=== PATIENT | female | born 1970 | race Caucasian/White ===

== ENCOUNTER 2021-10-27 11:36 | Day surgery (SDC) | payer OTHER, SELFPAY ==
[2021-10-23 15:07] VITALS: BMI 25.0
--- NOTE | 2021-10-26 14:09 | P.CONAN_ITS ---
Documented by User: Cher Chaudhry NP 10/26/21 14:09 HPI - Anesthesia Eval Consult details Narrative: 51yo F for Colonoscopy [facility] Past Medical History Medical History Diabetes Elevated cholesterol HTN (hypertension) Surgical History Surgical History History of Hx of cholecystectomy Hx of tubal ligation Social History Social History Patient Tobacco Use Status: Never used Tobacco Use of substances other than those prescribed or required for medical reasons: No Are you DNR?: No Advance Directives: No Advance Directives Information Provided: Yes Meds Allergies Allergy/AdvReac Type Severity Reaction Status Date / Time No Known Allergies Allergy Unverified 10/22/21 22:03 Home Medications Medication Instructions Recorded Confirmed Last Taken Type atorvastatin 20 mg tablet 1 tab DAILY 10/23/21 10/23/21 Unknown History dapagliflozin 10 mg tablet 1 tab PO DAILY 10/23/21 10/23/21 Unknown History (Farxi) glimepiride 1 mg tablet 1 tab PO DAILY 10/23/21 10/23/21 Unknown History lisinopril 20 1 tab DAILY 10/23/21 10/23/21 10/27/21 History mg-hydrochlorothiazide 25 mg tablet metformin 500 mg tablet,extended 2 tab PO BID 10/23/21 10/23/21 Unknown History release 24 hr sitagliptin 100 mg tablet (Januvia) 1 tab DAILY 10/23/21 10/23/21 Unknown History Exam Exam Date and Time: October 26, 2021 1409 Height,Weight and Vital Signs: Height 5 ft Weight 58.06 kg Assessment and Plan Assessment Anesthesia Assessment: Chart Reviewed Documented by User: Pato Devine MD 10/27/21 13:36 [facility] Past Medical History Medical History Diabetes Elevated cholesterol HTN (hypertension) Patient : No Family History Family history of problems with anesthesia: No Surgical History Surgical History History of Hx of cholecystectomy Hx of tubal ligation History of Problems with Anesthesia: No Social History Social History Patient Tobacco Use Status: Never used Tobacco Use of substances other than those prescribed or required for medical reasons: No Are you DNR?: No Advance Directives: No Advance Directives Information Provided: Yes Meds Allergies Allergy/AdvReac Type Severity Reaction Status Date / Time No Known Allergies Allergy Unverified 10/22/21 22:03 Home Medications Medication Instructions Recorded Confirmed Last Taken Type atorvastatin 20 mg tablet 1 tab DAILY 10/23/21 10/23/21 Unknown History dapagliflozin 10 mg tablet 1 tab PO DAILY 10/23/21 10/23/21 Unknown History (Farxiga) glimepiride 1 mg tablet 1 tab PO DAILY 10/23/21 10/23/21 Unknown History lisinopril 20 1 tab DAILY 10/23/21 10/23/21 10/27/21 History mg-hydrochlorothiazide 25 mg tablet metformin 500 mg tablet,extended 2 tab PO BID 10/23/21 10/23/21 Unknown History release 24 hr sitagliptin 100 mg tablet (Januvia) 1 tab DAILY 10/23/21 10/23/21 Unknown History Exam Airway Mallampati Class: II TM Dist: >3cm Neck ROM: Full Loose/Missing/Broken Teeth: No (Rrr) Lungs: clear Assessment and Plan Final Anesthetic Review Family History of Problems with Anesthesia: No History of Problems with Anesthesia: No NPO: Yes ASA Class: II Final Preanesthetic Review: No Changes in Pt Med Stat, Meds/Allgs Chart Reviewed, Consent Obtained/Reviewed and Anes Risks/Benef Reviewed Patient Risk: Intermediate Procedure Risk: Low Anesthetic Plan Anesthetic Plan: MAC: Disposition: Standard PACU
[2021-10-27 12:27] VITALS: BMI 24.4
[2021-10-27 12:37] VITALS: BP 106/56; PULSE 72; RESP 16; TEMP 36.7; O2SAT 98
[2021-10-27] MEDS: Lactated Ringers 1,000 ML 100 ML IVCONT (12:49)
[2021-10-27 12:56] LABS: Glucose, Whole Blood 119 mg/dL (60-115)
--- NOTE | 2021-10-27 14:23 | PM.OP ---
Brief Operative Note Date of Service: 10/27/21 Pre-op diagnosis: Screening Post-op diagnosis: other (Polyp) Procedure: Colonoscopy to the cecum and TI with bx/removal of polyp Surgeon: Reggie Cramer Anesthesia: MAC Was an Health Care / Medical Job Titles used for this Procedure?: No Estimated blood loss (mL): 2.0 Pathology: other (A. Ascending colon polyp) Condition: stable Disposition: PACU
[2021-10-27 14:26] VITALS: BP 111/60; PULSE 67; RESP 14; TEMP 36.2; O2SAT 99
[2021-10-27 14:41] VITALS: BP 116/63; PULSE 67; RESP 18; TEMP 37; O2SAT 100
--- NOTE | 2021-11-06 16:29 | OP_ITS ---
SURGEON: Reggie Cramer MD INDICATIONS: The patient presents for evaluation of colorectal cancer screening. Full consent obtained from her for this, including risks of bleeding and perforation. PREOPERATIVE DIAGNOSIS: POSTOPERATIVE DIAGNOSIS: PROCEDURE PERFORMED: ESTIMATED BLOOD LOSS: COMPLICATIONS: ANESTHESIA: Monitored anesthesia care. ASSISTANTS: SPECIMENS: PROCEDURES: Colonoscopy to cecum and terminal ileum with biopsy removal of polyp. PREOPERATIVE DIAGNOSES: Colorectal cancer screening. POSTOPERATIVE DIAGNOSES: Colorectal cancer screening. Small colon polyp, small internal hemorrhoids. DESCRIPTION OF PROCEDURE: The patient was placed in the left lateral decubitus position. The digital rectal exam revealed no abnormalities. The Olympus video pediatric colonoscope was entered into the rectum and advanced easily to the cecum. Once in the cecum, I did identify normal-appearing cecal pouch with appendiceal orifice and a normal-appearing ileocecal valve. The terminal ileum was cannulated and appeared normal. The scope was withdrawn back in the colon. The entire cecum and ileocecal valve appeared normal. The scope was then slowly withdrawn assessing all mucosal surfaces carefully. Preparation was excellent. In the proximal ascending colon was an approximately 3 mm polyp, which was biopsied and completely removed with cold biopsy forceps. I did not visualize any other polyps, colitis, nor angiodysplasia. In the rectum, scope was retroflexed visualizing small internal hemorrhoids, but no other pathology. The rectal mucosa appeared normal. The scope was straightened and withdrawn from the patient. She tolerated the procedure well and was returned to recovery area in stable condition. IMPRESSION: 1. Small colon polyp, status post biopsy removal. 2. Internal hemorrhoids. PLAN: The results of the biopsy will be checked. If this happens to be a tubular adenoma, I would recommend a followup colonoscopy in 5 years. If it is only hyperplastic, I would recommend a followup colonoscopy in 10 years. MD MARLO Dan/ERICL / [id number]
== END 2021-10-27 15:05 | disposition home or self-care (01) ==
PROVIDERS: PCP Internal Medicine; Visit Provider Internal Medicine
PROC: 0DJD8ZZ Inspection of Lower Intestinal Tract, Via Natural or Artificial Opening Endoscopic (ICD-10-PCS; CPT 45378; principal; 2021-10-27 13:10)
DX: Z12.11 Encounter for screening for malignant neoplasm of colon (principal); D12.2 Benign neoplasm of ascending colon; K64.8 Other hemorrhoids; I10 Essential (primary) hypertension; E78.00 Pure hypercholesterolemia, unspecified; E11.9 Type 2 diabetes mellitus without complications; Z79.84 Long term (current) use of oral hypoglycemic drugs; Z79.899 Other long term (current) drug therapy; Z90.49 Acquired absence of other specified parts of digestive tract
CPT/HCPCS: 45380; 82947; 88305